=== PATIENT | female | born 1960 | race Caucasian/White ===

== ENCOUNTER 2020-02-05 16:20 | Emergency (ER) | payer OTHER ==
[~2020-02-05] VITALS: Ht 167.6 cm; Wt 131.5 kg
[2020-02-05] MEDS ORDERED: LOSA100T31 PO (17:13)
[2020-02-05] MEDS ORDERED: HYDR12.55 PO (17:13)
[2020-02-05] MEDS ORDERED: HYDR-4075 PO (17:13)
[2020-02-05] MEDS ORDERED: ASPI81TA31 PO (17:13)
[2020-02-05] MEDS ORDERED: ATOR20TA PO (17:13)
[2020-02-05] MEDS ORDERED: LEVO88TA5 PO (17:13)
[2020-02-05] MEDS ORDERED: MELO-107 PO (17:13)
[2020-02-05 17:48] LABS: BASOPHILS # (AUTO) 0.1 K/uL (0.0-8.0); BASOPHILS % (AUTO) 0.5 % (0.0-2.0); EOSINOPHILS # (AUTO) 0.4 K/uL (0.0-0.7); EOSINOPHILS % (AUTO) 3.9 % (0.0-7.0); HEMATOCRIT 40.8 % (31.2-41.9); HEMOGLOBIN 13.3 g/dL (10.9-14.3); LYMPHOCYTES # (AUTO) 2.4 K/uL (20.0-40.0); LYMPHOCYTES % (AUTO) 21.6 % (20.5-51.5); MEAN CORPUSCULAR HEMOGLOBIN 26.6 uug (24.7-32.8); MEAN CORPUSCULAR HGB CONC 33 g/dL (32.3-35.6); MEAN CORPUSCULAR VOLUME 81.9 fL (75.5-95.3); MONOCYTES # (AUTO) 0.7 K/uL (2.0-10.0); MONOCYTES % (AUTO) 6.6 % (0.0-11.0); NEUTROPHILS # (AUTO) 7.6 K/uL (1.8-8.9); NEUTROPHILS % (AUTO) 67.4 % (38.5-71.5); PLATELET COUNT (AUTO) 162 K/uL (179-408); RED BLOOD CELL COUNT(AUTO) 4.99 MIL/uL (3.63-4.92); WHITE BLOOD COUNT (AUTO) 11.3 K/uL (3.8-11.8)
[2020-02-05 17:50] LABS: BILIRUBIN,DIRECT 0.1 mg/dL (0.0-0.2); BILIRUBIN,TOTAL 0.5 mg/dL (0.2-1.0); CREATININE 1.3 mg/dL (0.6-1.3); POTASSIUM 4.5 mmol/L (3.5-5.1); TOTAL PROTEIN, SERUM 7.3 g/dL (6.4-8.2)
[2020-02-05] MEDS ORDERED: VANCOMYCIN IV 1,000 MG in IV DEXTROSE 5% 250 ML IV ONE (18:30)
[2020-02-05] MEDS ORDERED: VANCOMYCIN IV 200 ML ONE (18:31)
[2020-02-05 18:35] LABS: *BILIRUBIN,URIN NEGATIVE (NEGATIVE); *CLARITY,URINE SLIGHTLY CLOUDY (CLEAR); *COLOR,URINE YELLOW (YELLOW); *KETONES,URINE NEGATIVE (NEGATIVE); *UROBILINOGEN,URINE 0.2 E.U./dl (NORMAL); LEUKOCYTE ESTERASE ,URINE TRACE (NEGATIVE); NITRITE, URINE NEGATIVE (NEGATIVE); UGLUCOSE NEGATIVE (NEGATIVE)
[2020-02-05 18:41] LABS: *BLOOD, URINE TRACE LYSED (NEGATIVE)
--- NOTE | 2020-02-05 18:42 | NUR ---
ER MD TALKED TO [facility] STATISTICAL ENGINEER CORINE, MULTIPLE TIMES. THE PLAN PER CORINE IS THAT THE PT BE D/FARIBA HOME WITH THE ORDERS OF VANCOMYCIN ONE GRAM IV WOUND CARE BEDSIDE PICC LINE AND MD FOLLOW UP IN 48 HRS WRITTEN IN D/C INSTRUCTION. TRANSLATION PROVIDED BY ANNE-MARIE VANEGAS. THE COPY OF ORDERS, FACE SHEET AND SUMMARY REPORT WAS FAXED TO [facility] PER REQUEST AT [phone].
[2020-02-05 20:22] LABS: BACTERIA,URINE FEW /HPF (NONE SEEN); SQUAMOUS EPITHELIAL CELL,UR MODERATE /HPF (NONE SEEN); URINE AMORPHOUS URATE MODERATE /HPF
--- NOTE | 2020-02-05 21:15 | NUR ---
IV removed. Catheter intact and site benign. Pressure and 4x4 gauze applied to site. No bleeding noted.
--- NOTE | 2020-02-05 21:17 | NUR ---
Patient discharged to home in stable condition with son taking patient home. Written and verbal after care instructions given. Patient verbalizes understanding of instructions. Stressed follow up or return to ER for worsening s/s.
[2020-02-05 21:18] VITALS: BP 110/66
== END 2020-02-05 21:18 | disposition home or self-care (01) ==
LOC: ER 16:22
DX: S91.001A Unspecified open wound, right ankle, initial encounter (principal); X58.XXXA Exposure to other specified factors, initial encounter; Y92.89 Other specified places as the place of occurrence of the external cause; R00.1 Bradycardia, unspecified; Z79.82 Long term (current) use of aspirin; Z79.899 Other long term (current) drug therapy; L08.9 Local infection of the skin and subcutaneous tissue, unspecified
CPT/HCPCS: 36415; 71045; 73600; 80048; 80076; 81001; 83605; 84145; 84484; 85025; 85651; 85730; 87040 ×2; 87086; 93005; 96365; 96366; 99285; J3370; 70030-TC; A4663

== ENCOUNTER 2021-05-15 14:10 | Emergency (ER) | payer OTHER ==
[~2021-05-15] VITALS: Ht 170.2 cm; Wt 136.1 kg
[~2021-05-15 14:10] MED LIST: ASPI81TA31 PO; ATOR20TA PO; HYDR-4075 PO; HYDR12.55 PO; LEVO88TA5 PO; LOSA100T31 PO; MELO-107 PO
[2021-05-15] MEDS ORDERED: IV NORMAL SALINE 1000 ML BAG IV ONE (14:45)
[2021-05-15] MEDS ORDERED: DEXAMETHASONE SOD PHOSPHATE 4 MG INJ IV ONE (14:45)
[2021-05-15] MEDS ORDERED: ROSU20TA2 PO (14:45)
[2021-05-15] MEDS ORDERED: AMLO10TA59 PO (14:45)
[2021-05-15] MEDS ORDERED: ACET-2154 PO (14:45)
[2021-05-15] MEDS ORDERED: OMEP40CA21 PO (14:45)
[2021-05-15] MEDS ORDERED: DIPH-1062 PO (14:45)
[2021-05-15] MEDS ORDERED: DEXAMETHASONE SOD PHOSPHATE 10 MG INJ ONE (14:56)
[2021-05-15 15:41] LABS: HEMATOCRIT 37.6 % (31.2-41.9); MEAN CORPUSCULAR HEMOGLOBIN 26.6 uug (24.7-32.8); MEAN CORPUSCULAR VOLUME 81.6 fL (75.5-95.3); PLATELET COUNT (AUTO) 121 K/uL (179-408)
[2021-05-15 15:48] LABS: CREATININE 1.6 mg/dL (0.6-1.3); POTASSIUM 4.4 mmol/L (3.5-5.1)
[2021-05-15 16:22] LABS: LYMPHOCYTES % (MANUAL) 28 % (20-40); MONOCYTES % (MANUAL) 9 % (2-10); NEUTROPHILS % (MANUAL) 63 % (42-75)
--- NOTE | 2021-05-15 16:25 | NUR ---
Note jose in EDM - 05/15/21 at 1626 by JADEN pt in bed, sat 98% with 5 litre O2 via nc. no sign of distress at this time.
--- NOTE | 2021-05-15 16:27 | NUR ---
pt in bed, sat 98% with 5 litre O2 via nc. no sign of distress at this time
[2021-05-15] MEDS ORDERED: ENOXAPARIN SODIUM 30 MG/0.3 ML DISP.SYRIN SUBCUT ONE (16:45)
[2021-05-15] MEDS ORDERED: ENOXAPARIN SODIUM 40 MG/0.4 ML DISP.SYRIN SQ ONE (17:12)
--- NOTE | 2021-05-15 17:25 | NUR ---
Patient does not wish to proceed with medical care recommended by Dr. Sosa. Patient given information related to possible complications, up to and including , which could occur as a result of leaving the hospital at this time. Patient verbalizes understanding of risks involved due to leaving against medical advice. Patient has signed AMA form.
[2021-05-15 17:26] VITALS: BP 131/82
== END 2021-05-15 17:27 | disposition left against medical advice (07) ==
LOC: ER 14:10
DX: U07.1 COVID-19 (principal); J12.82 Pneumonia due to coronavirus disease 2019; J96.01 Acute respiratory failure with hypoxia; D69.6 Thrombocytopenia, unspecified; Z53.29 Procedure and treatment not carried out because of patient's decision for other reasons; N28.9 Disorder of kidney and ureter, unspecified; D72.819 Decreased white blood cell count, unspecified; R79.1 Abnormal coagulation profile; E11.9 Type 2 diabetes mellitus without complications; E07.9 Disorder of thyroid, unspecified; Z79.890 Hormone replacement therapy
CPT/HCPCS: 36415; 71045; 80048; 83605; 83880; 84145; 84484; 85007; 85025; 85379; 87040 ×2; 87426; 93005; 96361; 96372; 96374; 99291; J1100; J1650; 70030-TC; A4663; J7030

== ENCOUNTER 2022-11-01 11:30 | Emergency (ER) | payer OTHER ==
[~2022-11-01] VITALS: Ht 170.2 cm; Wt 122.5 kg
[~2022-11-01 11:30] MED LIST changes: +ACET-2154 PO; +AMLO10TA59 PO; +DIPH-1062 PO; +OMEP40CA21 PO; +ROSU20TA2 PO
--- NOTE | 2022-11-01 11:56 | NUR ---
COVID swab collected and sent to LAB.
[2022-11-01 12:24] LABS: HEMATOCRIT 38.6 % (31.2-41.9); MEAN CORPUSCULAR HEMOGLOBIN 26.5 uug (24.7-32.8); MEAN CORPUSCULAR VOLUME 81.8 fL (75.5-95.3); PLATELET COUNT (AUTO) 154 K/uL (179-408)
[2022-11-01 12:36] LABS: CREATININE 1.1 mg/dL (0.6-1.3); POTASSIUM 4.1 mmol/L (3.5-5.1)
[2022-11-01 12:42] LABS: BILIRUBIN,TOTAL 0.5 mg/dL (0.2-1.0); TOTAL PROTEIN, SERUM 7.9 g/dL (6.4-8.2)
[2022-11-01] MEDS ORDERED: IBUP-1955 PO (13:12)
[2022-11-01] MEDS ORDERED: BENZ-13 PO (13:12)
[2022-11-01 13:22] VITALS: BP 120/70
--- NOTE | 2022-11-01 13:22 | NUR ---
Patient discharged to home in stable condition. Written and verbal after care instructions given. Patient verbalizes understanding of instructions. Stressed follow up or return to ER for worsening s/s.
== END 2022-11-01 13:30 | disposition home or self-care (01) ==
LOC: ER 11:30
DX: J06.9 Acute upper respiratory infection, unspecified (principal); R05.9 Cough, unspecified; R09.81 Nasal congestion; L97.929 Non-pressure chronic ulcer of unspecified part of left lower leg with unspecified severity; I10 Essential (primary) hypertension; E78.5 Hyperlipidemia, unspecified; E11.9 Type 2 diabetes mellitus without complications; K21.9 Gastro-esophageal reflux disease without esophagitis; Z79.899 Other long term (current) drug therapy; Z79.82 Long term (current) use of aspirin; Z20.822 Contact with and (suspected) exposure to COVID-19
CPT/HCPCS: 36415; 71045; 73590; 85025; A4663